=== PATIENT | male | born 1955 | race Caucasian/White ===

== ENCOUNTER 2024-11-28 13:58 | Outpatient (CLI) | payer MEDICARE, OTHER ==
--- NOTE | 2024-11-28 20:20 | RADIOLOGY REPORT ---
EXAM: MR MRI C SPINE INDICATION: ENCNTR FOR OBS FOR OTH SUSPECTED DISEASES AND COND RULED OUT TECHNIQUE: Multiplanar, multisequence imaging of the cervical spine without contrast. COMPARISON: MR MRI LUMBAR SPINE on DOS: 11/28/24 FINDINGS: [ANATOMY]: Cervical lordosis is maintained. [BONES]: The vertebral bodies are normal in height, alignment, and marrow signal. [CERVICAL CORD]: The cervical cord is normal in signal and morphology. [DISCS]: Diffuse disc desiccation. Iuad-[id number] intervertebral disc height loss C4-5. [FACETS]: Mild facet arthropathy. [OTHER]: There is no prevertebral soft tissue swelling. The visualized paraspinal soft tissues are normal. Ligamentum flavum buckling at C4-5, C5-6, C6-7. [C2-C3]: Unremarkable. [C3-C4]: Unremarkable. [C4-C5]: Trace ligamentum flavum buckling trace posterior disc osteophyte complex. [C5-C6]: Trace ligamentum flavum buckling. Trace circumferential disc bulge with minimal uncovertebral spurring. [C6-C7]: Trace ligamentum flavum buckling. Minimal effacement of the ventral thecal sac. Trace circumferential disc bulge and bilateral 2-3 mm uncovertebral spurring contributing to mild bilateral foraminal narrowing. [C7-T1]: Trace broad-based posterior disc protrusion. IMPRESSION: 1. No acute fracture or subluxation. 2. Multilevel degenerative changes with mild foraminal narrowing at C5-6 and C6-7. 3. No abnormal cervical cord signal.
[2024-11-28] MEDS ORDERED: GADOTERATE MEGLUMINE 7.5 MMOL/15 ML VIAL IV ONE (20:28)
--- NOTE | 2024-11-28 20:38 | RADIOLOGY REPORT ---
PROCEDURE: MR MRI LUMBAR SPINE INDICATION: ENCNTR FOR OBS FOR OTH SUSPECTED DISEASES AND COND RULED OUT Exam Date: 11/28/2024 02:36 PM COMPARISON: None TECHNIQUE: MRI lumbar spine without intravenous contrast. FINDINGS: Multilevel disc degeneration. Alignment: Grade 1 retrolisthesis of L1 on L2. Grade 1 retrolisthesis of L3 on L4. Grade 1 retrolisthesis of L4 on L5. Vertebrae: Unremarkable Conus: Conus medullaris terminates at the T12-L1 level. T12-L1: Disc desiccation. No spinal canal or neural foraminal stenosis. Facet arthrosis. L1-2: Grade 1 retrolisthesis of L1 on L2 by 2.2 mm. Disc desiccation and disc bulge. Mild right subarticular zone stenosis. Moderate right foraminal stenosis. Facet arthrosis. L2-3: Disc desiccation and 4.25 mm disc bulge. Mild spinal canal stenosis. Moderate right and mild left subarticular zone stenosis. Moderate right and mild left foraminal stenosis. Facet arthrosis. L3-4: Grade 1 retrolisthesis of L3 on L4 by 2.2 mm. Disc desiccation. Disc bulge with superimposed left extraforaminal disc extrusion measured 6.95 mm in radial dimension. Mild spinal canal stenosis. Mild right and moderate left subarticular zone stenosis. Moderate bilateral foraminal stenosis. Facet arthrosis. L4-5: Grade 1 retrolisthesis of L4 on L5 by 3.3 mm. Disc desiccation and 3.9 mm disc bulge. Mild spinal canal stenosis. Severe bilateral subarticular zone stenosis with bilateral descending L5 nerve root compression. Moderate right and severe left foraminal stenosis with potential left exiting L4 nerve root compression. Facet arthrosis. L5-S1: Disc desiccation and 0.6 mm disc bulge. Mild right and moderate left subarticular zone stenosis. Mild bilateral foraminal stenosis. Facet arthrosis. IMPRESSION: Multilevel disc degeneration. Multilevel spinal canal stenosis, most pronounced and mild at L4-L5. Multilevel subarticular zone stenosis, most pronounced and severe at L4-L5 with bilateral descending L5 nerve root compression. Multilevel foraminal stenosis, most pronounced and severe at L4-L5 with potential left exiting L4 nerve root compression.
--- NOTE | 2024-11-28 20:40 | RADIOLOGY REPORT ---
[facility] EXAMINATION: MR MRI HEAD INDICATION: R/O PARKINSONS, PROGRESSIVE WEAKNESS COMPARISON: None TECHNIQUE: Multiplanar, multisequence magnetic resonance imaging of the brain was performed without the use of intravenous contrast. FINDINGS: No evidence of acute or remote infarct. No intracranial hemorrhage. No mass effect. There is periventricular/deep white matter T2/FLAIR hyperintensity is nonspecific, but most commonly associated with chronic microvascular disease. The ventricles and sulci are normal in size for age. Clear basal cisterns. Flow voids in the major intracranial vessels are maintained. No abnormality of the orbits. Paranasal sinuses and mastoid air cells are clear. No abnormality of the visualized osseous structures and extracranial soft tissues. IMPRESSION: No acute infarct, intracranial hemorrhage, mass effect, or hydrocephalus.
== END 2024-11-28 23:59 | disposition home or self-care (01) ==
LOC: MRI 13:58
PROVIDERS: ATTEND Family Medicine
DX: Z03.89 Encounter for observation for other suspected diseases and conditions ruled out (principal); M47.817 Spondylosis without myelopathy or radiculopathy, lumbosacral region; M47.813 Spondylosis without myelopathy or radiculopathy, cervicothoracic region; M51.379 Other intervertebral disc degeneration, lumbosacral region without mention of lumbar back pain or lower extremity pain; M48.02 Spinal stenosis, cervical region; M43.16 Spondylolisthesis, lumbar region; M48.07 Spinal stenosis, lumbosacral region
CPT/HCPCS: 70553; 72156; 72158; A9575

== ENCOUNTER 2025-01-09 18:31 | Emergency (ER) | payer MEDICARE, OTHER ==
[~2025-01-09] VITALS: Ht 175.3 cm; Wt 81.8 kg
--- NOTE | 2025-01-09 18:41 | Physician Documentation ---
History of Present Illness ~ Stated Complaint: NECK PAIN Time Seen by MD: 18:45 HPI 69-year-old male with spinal stenosis and very poor motor function, who presents with worsening neck pain. Per EMS, the patient lives at a care facility, [facility]. He is being transferred in a [employer] lift, when his head tilted backwards. He was unable to lift his head and complained of severe neck pain after this happened. He was placed in a C-collar for comfort. The patient denies any other new or different symptoms. He reports chronic weakness in his arms and legs. He states he is not able to walk or feed himself. He denies any new weakness or numbness or other new symptoms after this incident with his neck. Declines any pain medications. When I asked him how we can help him today he says I want you to figure out what is wrong with me and fix it. Per paperwork with the patient. He had recent imaging of his head and neck. This includes he had a CT scan on 11/13/2024, with and without contrast. This shows no acute abnormality. He then had a MRI of his C-spine. This shows spinal stenosis and foraminal stenosis. He had an MRI of his lumbar spine, which showed no acute fracture, multilevel degenerative changes, no abnormal cord signal. Per his paperwork he has a neurology appointment on January 13. Review of Systems Constitutional: Reports: weakness Musculoskeletal: Reports: neck pain Physical Exam Physical Exam General: This is a frail and chronically ill-appearing older man lying in bed wearing a C-collar, he is alert and answering questions HEENT: Atraumatic, oropharynx appears dry Neck: C-collar in place Heart: Regular rate and rhythm, normal-appearing peripheral perfusion Lungs: normal work of breathing, normal oxygen saturation on room air Neuro: Alert and oriented. The patient has significant weakness to all 4 extremities. He is not really able to lift his arms up off the bed. He can wiggle his toes but can not raise his legs up off the bed. He tells me this is all his current baseline function Psychiatric: Calm and cooperative with exam Progress Results/Orders Results/Orders Orders - BEBE CRUZ MD Ct Cervical Spine (01/09/25 19:00) Completed Orders - BEBE CRUZ MD Ct Cervical Spine (01/09/25 19:00) Vital Signs 01/09/25 01/09/25 18:56 19:20 Temp 98.2 Pulse 72 72 Resp 14 14 B/P (MAP) 108/94 110/95 (100) Pulse Ox 95 95 EKG/XRAY/CT/US/VASC/MRI CT : Impression I personally interpreted the CT scan, and this shows no acute cervical fracture. This is confirmed by the radiology report Medical Decision Making Additional information obtaine: old records Findings Reviewed previous admission Differential Dx:Considerations: Include: Cervical muscle spasm, DJD, Torticollis, Other (Cervical fracture, spinal stenosis) Additional Comment The patient presents with worsening neck pain after movement. Here in the ED, he has very poor neurologic function at baseline, but denies any other new or different numbness or weakness or other symptoms. He declines having any pain medications. A CT scan of his neck was obtained which shows no acute fracture or other change. His facility was contacted and stated that they have no other acute concerns except for his new neck pain. They are happy to have him return. He will be discharged with a as needed collar, for comfort only. Follow up with the neurologist next week as scheduled. Departure Time of Disposition: 20:49 Disposition: 01 HOME / SELF CARE / HOMELESS Impression: Primary Impression: Chronic neck pain Condition: Stable Discharge Instructions: Cervical Sprain Referrals: NO PRIMARY CARE PROVIDER (PCP) Education Educated: Patient Educated regarding: diagnosis, need for follow up Signature Scribe Signature: na Attestation: ARANZA Escamilla NP Jan 09, 2025 18:41 BEBE CRUZ MD Jan 09, 2025 18:54
[2025-01-09 18:56] VITALS: TEMP 98.2
--- NOTE | 2025-01-09 20:04 | RADIOLOGY REPORT ---
EXAM: CT CT CERVICAL SPINE INDICATION: worsening neck pain after movement and extension EXAM DATE: 01/09/2025 06:53 PM COMPARISON: None TECHNIQUE: Multiple axial CT images of the cervical spine were obtained using bone algorithm. Axial and coronal reformatting was done. Bone and soft tissue windows were reviewed. Radiation Dose Information: CT Dose: CTDI volume is 19.51 mGy. Dose-length product is 519.78 mGy*cm FINDINGS: The cervical alignment is intact. No acute cervical spine fracture is identified. The vertebral body heights are intact. No suspicious osseous lesions are identified. Multilevel moderate degenerative changes of the cervical spine. There is no prevertebral soft tissue swelling. [id number] emphysematous changes of the lung apices with biapical atelectasis /scarring. IMPRESSION: No evidence of acute cervical spine fracture or traumatic malalignment. All CT scans at this medical facility are performed using dose modulation techniques as appropriate to a performed exam including the following: Automated exposure control was utilized; adjustment of the MA and/or KV according to patient size; and use of iterative reconstruction technique.
[2025-01-09 20:30] VITALS: BP 129/92; PULSE 70; RESP 14; O2SAT 95
== END 2025-01-09 21:47 | disposition home or self-care (01) ==
LOC: ER 18:31
DX: G89.29 Other chronic pain (principal); M54.2 Cervicalgia
CPT/HCPCS: 72125; 99284; L0172